=== PATIENT | male | born 1970 | race African-American/Black ===

== ENCOUNTER → 2024-06-02 19:30 | Emergency (ER) | payer OTHER ==
--- NOTE | 2022-12-14 14:57 | RAD REPORT ---
EXAM DESCRIPTION: Leobardo Single View12/14/2022 2:49 pm CLINICAL HISTORY: Chest pain COMPARISON: none FINDINGS: Mild elevation left hemidiaphragm Lungs appear clear of acute infiltrate. The heart is normal size
--- NOTE | 2022-12-14 15:22 | RAD REPORT ---
EXAM DESCRIPTION: CT - Head Brain Wo Cont - 12/14/2022 3:07 pm CLINICAL HISTORY: Dizziness COMPARISON: none TECHNIQUE: Computed axial tomography of the head was obtained. IV contrast was not requested. All CT scans are performed using dose optimization technique as appropriate and may include automated exposure control or mA/KV adjustment according to patient size. FINDINGS: An intracranial bleed is not seen The ventricles are normal in caliber No significant hypodense areas within the brain visualized No extra-axial fluid collection is noted. Fluid within the sinuses/ mastoids is not seen IMPRESSION: No acute intracranial abnormality is seen If patient's symptoms persist MRI of the brain would be recommended
[2022-12-14 15:25] LABS: Absolute Eosinophils 0.1 K/uL (0-0.5); Absolute Lymphocytes (CBC) 1.2 K/uL (0.7-4.9); Absolute Monocytes 0.4 K/uL (0.1-1.3); Basophils % 0.6 % (0-1.3); Eosinophils % 2.3 % (0-4.4); Hematocrit 43.2 % (39.6-49.0); Hemoglobin 14.2 g/dL (13.6-17.9); Lymphocytes % 25.9 % (15.3-44.8); MCH 31.1 pg (27.0-35.0); MCHC 32.9 g/dL (32.0-36.0); MCV 94.6 fL (80-100); MPV 7.1 fL (7.6-11.3); Neutrophils % 63.2 % (41.7-73.7); Platelets 249 thou/uL (152-406); RBC Red Blood Cell Count 4.57 M/uL (4.33-5.43); Red Cell Distribution Width 13.1 % (12.1-15.2)
[2022-12-14 15:28] LABS: Anion Gap 8.1 mEq/L (5.0-15.0); Magnesium 1.6 mg/dL (1.6-2.4); Potassium 4.1 mEq/L (3.5-5.1)
[2022-12-14 15:30] LABS: PT Prothrombin Time 12.2 SECONDS (9.5-12.5); Protime INR 1.11
[2022-12-14 16:47] LABS: Barbiturates NEGATIVE (NEGATIVE); Benzodiazepines NEGATIVE (NEGATIVE); Cocaine POSITIVE (NEGATIVE); METHAMPHETAM NEGATIVE (NEGATIVE); Methadone NEGATIVE (NEGATIVE); Opiates NEGATIVE (NEGATIVE); Phencyclidine NEGATIVE (NEGATIVE); THC Cannibis NEGATIVE (NEGATIVE)
--- NOTE | 2022-12-14 16:59 | EDPHYS ---
Physician Documentation [facility] Name: Jesus Murray Age: 52 yrs Sex: Male : 1970 Arrival Date: 12/14/2022 Time: 14:04 Bed 20 Private MD: ED Physician Yann Wilson HPI: 12/14 15:50 This 52 yrs old Black Male presents to ER via EMS with complaints of Near Syncope, kirti Dizziness. 15:50 The patient or guardian reports chest pain that is located primarily in the substernal kirti area. Onset: today. The patient has experienced near-syncope, almost passed out, felt dizzy. Onset: The symptoms/episode began/occurred just prior to arrival, today. Duration: The patient has had multiple episodes, that last 30 second(s). The pain does not radiate. Context: the episode(s) was witnessed, by co-worker(s), occurred at work. Associated signs and symptoms: Pertinent positives: dizziness, lightheadedness. Modifying factors: The symptoms are alleviated by nothing. the symptoms are aggravated by nothing. Associated injury: The patient did not suffer any apparent associated injury. Historical: - Allergies: 14:50 No Known Allergies; eh3 - Home Meds: 14:50 Metformin Oral [Active]; eh3 - PMHx: 14:50 Diabetes mellitus; Hypertensive disorder; eh3 - Immunization history:: Adult Immunizations up to date. - Social history:: Smoking status: Patient denies any tobacco usage or history of. Patient uses alcohol, occasionally. - Family history:: not pertinent. ROS: 15:50 Constitutional: Negative for fever, chills, and weight loss, Eyes: Negative for injury, kirti pain, redness, and discharge, ENT: Negative for injury, pain, and discharge, Neck: Negative for injury, pain, and swelling, Cardiovascular: Negative for chest pain, palpitations, and edema, Respiratory: Negative for shortness of breath, cough, wheezing, and pleuritic chest pain, Abdomen/GI: Negative for abdominal pain, nausea, vomiting, diarrhea, and constipation, Back: Negative for injury and pain, : Negative for injury, bleeding, discharge, and swelling, MS/Extremity: Negative for injury and deformity, Skin: Negative for injury, rash, and discoloration, Neuro: Negative for headache, weakness, numbness, tingling, and seizure, Psych: Negative for depression, anxiety, suicide ideation, homicidal ideation, and hallucinations, Allergy/Immunology: Negative for hives, rash, and allergies, Endocrine: Negative for neck swelling, polydipsia, polyuria, polyphagia, and marked weight changes, Hematologic/Lymphatic: Negative for swollen nodes, abnormal bleeding, and unusual bruising. Exam: 15:50 Constitutional: This is a well developed, well nourished patient who is awake, alert, kirti and in no acute distress. Head/Face: Normocephalic, atraumatic. Eyes: Pupils equal round and reactive to light, extra-ocular motions intact. Lids and lashes normal. Conjunctiva and sclera are non-icteric and not injected. Cornea within normal limits. Periorbital areas with no swelling, redness, or edema. ENT: Nares patent. No nasal discharge, no septal abnormalities noted. Tympanic membranes are normal and external auditory canals are clear. Oropharynx with no redness, swelling, or masses, exudates, or evidence of obstruction, uvula midline. Mucous membranes moist. Neck: Trachea midline, no thyromegaly or masses palpated, and no cervical lymphadenopathy. Supple, full range of motion without nuchal rigidity, or vertebral point tenderness. No Meningismus. Chest/axilla: Normal chest wall appearance and motion. Nontender with no deformity. No lesions are appreciated. Cardiovascular: Regular rate and rhythm with a normal S1 and S2. No gallops, murmurs, or rubs. Normal PMI, no JVD. No pulse deficits. Respiratory: Lungs have equal breath sounds bilaterally, clear to auscultation and percussion. No rales, rhonchi or wheezes noted. No increased work of breathing, no retractions or nasal flaring. Abdomen/GI: Soft, non-tender, with normal bowel sounds. No distension or tympany. No guarding or rebound. No evidence of tenderness throughout. Back: No spinal tenderness. No costovertebral tenderness. Full range of motion. Male : Normal genitalia with no discharge or lesions. Skin: Warm, dry with normal turgor. Normal color with no rashes, no lesions, and no evidence of cellulitis. MS/ Extremity: Pulses equal, no cyanosis. Neurovascular intact. Full, normal range of motion. Neuro: Awake and alert, GCS 15, oriented to person, place, time, and situation. Cranial nerves II-XII grossly intact. Motor strength 5/5 in all extremities. Sensory grossly intact. Cerebellar exam normal. Normal gait. Psych: Awake, alert, with orientation to person, place and time. Behavior, mood, and affect are within normal limits. 15:50 ECG was reviewed by the Attending Physician. Vital Signs: 14:46 BP 138 / 91; Pulse 90; Resp 18; Temp 98.4(O); Pulse Ox 99% on R/A; Weight 87.54 kg; eh3 Height 5 ft. 11 in. ; 14:50 BP 138 / 91; Pulse 90; Resp 18; Pulse Ox 99% on R/A; Weight 87.54 kg; Height 5 ft. 11 eh3 in. ; Pain 8/10; 15:15 BP 145 / 98; Pulse 95; Resp 15; Pulse Ox 100% on R/A; eh3 15:45 BP 159 / 96; Pulse 94; Resp 14; Pulse Ox 100% on R/A; eh3 16:45 BP 151 / 88; Pulse 92; Resp 20; Pulse Ox 100% on R/A; eh3 17:44 BP 164 / 99 Supine; Pulse 91; eh3 17:46 BP 171 / 102 Sitting; Pulse 94; eh3 17:48 BP 169 / 98 Standing; Pulse 98; eh3 14:50 Body Mass Index 26.92 (87.54 kg, 180.34 cm) eh3 14:50 Pain Scale: Adult eh3 MDM: 14:17 Patient medically screened. ms3 15:58 Differential diagnosis: abnormal EKG, acute myocardial infarction, acute pericarditis, kirti anxiety, congestive heart failure Cholelithiasis hiatal hernia, pancreatitis, pulmonary embolus. HEART Score: History: Slightly Suspicious (0), ECG: Normal (0), Age: > 45 and < 65 years (1), Risk Factors: > or = 3 Risk factors for atherosclerotic disease (2), [Hypertension] [DM] [+ Family HX] Troponin: < or = 1 x Normal Limit (0). Differential Diagnosis: cardiac arrhythmia, drug effect, emotional response, pseudo seizure, vasovagal episode. The patient was not given aspirin in the Emergency Department. GEORGE Risk Score: 1 - Three or more CAD risk factors, TOTAL SCORE = 1. Data reviewed: vital signs, nurses notes, lab test result(s), EKG, radiologic studies, plain films. Consideration of Admission/Observation Escalation of care including admission/observation considered. I considered the following discharge prescriptions or medication management in the emergency department Medications were administered in the Emergency Department. See MAR. Independent interpretation of the following test(s) in the Emergency Department EKG: See my EKG interpretation above. Test considered but Not performed: MRI: NO MRI BRAIN. Care significantly affected by the following chronic conditions: Diabetes, Hypertension. Counseling: I had a detailed discussion with the patient and/or guardian regarding: the historical points, exam findings, and any diagnostic results supporting the discharge/admit diagnosis, the presence of at least one elevated blood pressure reading (>120/80) during this emergency department visit, lab results, radiology results, the need for outpatient follow up, for definitive care, a paper wood cutter, a family practitioner. 12/14 14:19 Order name: Basic Metabolic Panel; Complete Time: 15:48 ms 12/14 14:19 Order name: CBC with Diff; Complete Time: 15:48 [facility] [place] 14:19 Order name: Magnesium; Complete Time: 15:48 [facility] [place]/14 14:19 Order name: NT PRO-BNP; Complete Time: 15:48 [facility] 12/14 14:54 Order name: PT-INR; Complete Time: 15:48 [facility] 12/14 14:54 Order name: Troponin HS; Complete Time: 15:48 [facility] 12/14 15:25 Order name: Acetaminophen [facility] 12/14 15:25 Order name: ETOH Level; Complete Time: 16:58 [facility] 12/14 15:25 Order name: Ptt, Activated; Complete Time: 16:58 [facility] 12/14 15:25 Order name: Salicylate [facility] 12/14 15:25 Order name: Urine Drug Screen; Complete Time: 16:58 [facility] 12/14 14:19 Order name: XRAY Chest (1 view); Complete Time: 15:48 [facility] 12/14 14:54 Order name: CT Head Brain wo Cont; Complete Time: 15:48 [facility] 12/14 14:19 Order name: EKG; Complete Time: 14:19 ms3 12/14 14:19 Order name: Labs collected and sent; Complete Time: 15:12 [facility] 12/14 14:19 Order name: O2 Per Protocol; Complete Time: 15:12 ms3 12/14 14:54 Order name: Cardiac monitoring; Complete Time: 15:12 kirti 12/14 14:54 Order name: EKG - Nurse/Tech; Complete Time: 15:12 [facility] 12/14 14:54 Order name: IV Saline Lock; Complete Time: 15:12 [facility] 12/14 14:54 Order name: O2 Sat Monitoring; Complete Time: 15:12 [facility] 12/14 16:01 Order name: Orthostatics: AFTER FLUIDS; Complete Time: 17:50 [facility] 12/14 16:05 Order name: PO challenge; Complete Time: 17:50 kirti EC:50 Rate is 92 beats/min. Rhythm is regular. QRS [place] is Normal. OR interval is normal. QRS kirti interval is normal. QT interval is normal. No Q waves. T waves are Normal. No ST changes noted. Clinical impression: Normal ECG and No evidence of ischemia. Interpreted by me. Reviewed by me. Administered Medications: 14:54 Not Given (Duplicate Order): Furosemide PO 40 mg PO once [facility] 16:00 Drug: Thiamine IV 100 mg Route: IV; Rate: per protocol; Site: right antecubital; [facility] 17:51 Follow up: Response: No adverse reaction; IV Status: Completed infusion; IV Intake: 1ml [facility] 16:00 Drug: NS 0.9% IV 1000 ml Route: IV; Rate: 1 bolus; Site: right antecubital; [facility] 17:51 Follow up: IV Status: Completed infusion; IV Intake: 1000ml [facility] 16:00 Drug: Banana Bag - (NS 0.9% IV 1000 ml, foLIC Acid IVPB 1 mg, Thiamine IV 100 mg, 3 Multivitamin IV 1 amp) Route: IV; Rate: 500 ml/hr; Site: right antecubital; 17:50 Follow up: IV Status: Completed infusion; IV Intake: 1000ml [facility] 16:00 Drug: Magnesium Sulfate IVPB 1 grams Route: IVPB; Infused Over: 1 hrs; Site: right [facility] antecital; 17:50 Follow up: Response: No adverse reaction; IV Status: Completed infusion; IV Intake: eh3 100ml 17:30 Drug: Aspirin PO 81 mg Route: PO; [facility] 17:50 Follow up: Response: No adverse reaction [facility] Disposition Summary: 12/14/22 16:59 Discharge Ordered Location: Home kirti Problem: new kirti Symptoms: have improved kirti Condition: Stable kirti Diagnosis - Dizziness and giddiness kirti - Syncope Near kirti - Cocaine abuse kirti - Abuse of other non-psychoactive substances kirti Followup: kirti - With: Private Physician - When: 2 - 3 days - Reason: Recheck today's complaints, Continuance of care, Re-evaluation by your physician Followup: kirti - With: - When: 2 - 3 days - Reason: Recheck today's complaints, Re-evaluation by your physician Discharge Instructions: - Discharge Summary Sheet kirti - Cocaine Use Disorder kirti - Dizziness kirti - Near-Syncope kirti - Weakness kirti - Near-Syncope, [id number] kirti - Weakness, [id number] kirti - Aspirin and Your Heart kirti - Dizziness, [id number] kirti Forms: - Medication Reconciliation Form kirti - Thank You Letter kirti - Antibiotic Education kirti - Prescription Opioid Use kirti - Patient Portal Instructions kirti - Work release form eh3 Signatures: Dispatcher [employer] EDYann Rodrigues MD MD cha Sims, Marcus, DO DO ms3 Suzette Garcia RN RN 3 Corrections: (The following items were deleted from the chart) 14:25 14:19 Cardiac monitoring ordered. ms3 ms3 14:25 14:19 EKG - Nurse/Tech ordered. ms3 ms3 14:25 14:19 IV Saline Lock ordered. ms3 ms3 14:25 14:19 O2 Sat Monitoring ordered. ms3 ms3
--- NOTE | 2022-12-14 16:59 | ER ---
Nurse's Notes [facility] Name: Jesus Murray Age: 52 yrs Sex: Male : 1970 Arrival Date: 12/14/2022 Time: 14:04 Bed 20 Private MD: Diagnosis: Dizziness and giddiness;Syncope Near;Cocaine abuse;Abuse of other non-psychoactive substances Presentation: 12/14 14:46 Chief complaint: EMS states: toned out to pt's place of work for dizziness, near eh3 syncope, and diaphoresis. Pt states episode started about 1230 today. Ebola Screen: No symptoms or risks identified at this time. Risk Assessment: Do you want to hurt yourself or someone else? Patient reports no desire to harm self or others. Onset of symptoms was December 14, 2022. 14:46 Method Of Arrival: EMS: [place] [id number] 14:46 Acuity: PATSY 3 3 14:53 Coronavirus screen: Vaccine status: Patient reports receiving the 2nd dose of the covid eh3 vaccine. Initial Sepsis Screen: Does the patient meet any 2 criteria? No. Patient's initial sepsis screen is negative. Does the patient have a suspected source of infection? No. Patient's initial sepsis screen is negative. Triage Assessment: 14:46 General: Appears in no apparent distress. uncomfortable, Behavior is calm, cooperative. eh3 Pain: Denies pain. Neuro: Level of Consciousness is awake, alert, obeys commands, Oriented to person, place, time, situation, Reports dizziness. Cardiovascular: Reports diaphoresis, lightheadedness, nausea, vomiting, Capillary refill < 3 seconds Patient's skin is warm and dry. Respiratory: Airway is patent Respiratory effort is even, unlabored, Respiratory pattern is regular, symmetrical. GI: Abdomen is round non-distended. Derm: Skin is healthy with good turgor, Skin is clammy. Musculoskeletal: Circulation, motion, and sensation intact. Historical: - Allergies: 14:50 No Known Allergies; eh3 - Home Meds: 14:50 Metformin Oral [Active]; eh3 - PMHx: 14:50 Diabetes mellitus; Hypertensive disorder; eh3 - Immunization history:: Adult Immunizations up to date. - Social history:: Smoking status: Patient denies any tobacco usage or history of. Patient uses alcohol, occasionally. - Family history:: not pertinent. Screenin:46 [facility] [place] ED Fall Risk Assessment (Adult) Score/Fall Risk Level 0 - 2 = Low Risk. Abuse eh3 screen: Denies threats or abuse. Denies injuries from another. Nutritional screening: No deficits noted. Tuberculosis screening: No symptoms or risk factors identified. Assessment: 14:46 Reassessment: No changes from previously documented assessment. See triage assessment. eh3 Pain: Pain does not radiate. Pain began suddenly. 15:45 Reassessment: Patient appears in no apparent distress at this time. Patient and/or eh3 family updated on plan of care and expected duration. Pain level reassessed. Patient is alert, oriented x 3, equal unlabored respirations, skin warm/dry/pink. 16:45 Reassessment: Patient appears in no apparent distress at this time. Patient and/or 3 family updated on plan of care and expected duration. Pain level reassessed. Patient is alert, oriented x 3, equal unlabored respirations, skin warm/dry/pink. 17:45 Reassessment: Patient appears in no apparent distress at this time. Patient and/or 3 family updated on plan of care and expected duration. Pain level reassessed. Patient is alert, oriented x 3, equal unlabored respirations, skin warm/dry/pink. Vital Signs: 14:46 BP 138 / 91; Pulse 90; Resp 18; Temp 98.4(O); Pulse Ox 99% on R/A; Weight 87.54 kg; eh3 Height 5 ft. 11 in. ; 14:50 BP 138 / 91; Pulse 90; Resp 18; Pulse Ox 99% on R/A; Weight 87.54 kg; Height 5 ft. 11 eh3 in. ; Pain 8/10; 15:15 BP 145 / 98; Pulse 95; Resp 15; Pulse Ox 100% on R/A; eh3 15:45 BP 159 / 96; Pulse 94; Resp 14; Pulse Ox 100% on R/A; eh3 16:45 BP 151 / 88; Pulse 92; Resp 20; Pulse Ox 100% on R/A; eh3 17:44 BP 164 / 99 Supine; Pulse 91; eh3 17:46 BP 171 / 102 Sitting; Pulse 94; eh3 17:48 BP 169 / 98 Standing; Pulse 98; eh3 14:50 Body Mass Index 26.92 (87.54 kg, 180.34 cm) eh3 14:50 Pain Scale: Adult 3 ED Course: 14:16 Patient arrived in ED. 3 14:17 Davi Black DO is Attending Physician. ms3 14:27 Attending Physician role handed off by Davi Black DO eb 14:27 Yann Wilson MD is Attending Physician. eb 14:45 Suzette Garcia, HEIDI is Primary Nurse. eh3 14:46 Patient has correct armband on for positive identification. Bed in low position. Call 3 light in reach. Side rails up X2. Adult w/ patient. Client placed on continuous cardiac and pulse oximetry monitoring. NIBP monitoring applied. 14:46 Maintain EMS IV. Dressing intact. Good blood return noted. Site clean \T\ dry. Gauge \T\ eh 3 site: 18g RAC. Patient maintains SpO2 saturation greater than 95% on room air. 14:47 Triage completed. eh3 14:50 Arm band placed on. 3 14:51 XRAY Chest (1 view) In Process Unspecified. EDMS 15:08 CT Head Brain wo Cont In Process Unspecified. EDMS 16:59 Benton Levin MD is Referral Physician. [facility] 18:30 Provided Education on: N/A. [facility] 18:30 No provider procedures requiring assistance completed. IV discontinued, intact, eh3 bleeding controlled, No redness/swelling at site. Pressure dressing applied. Administered Medications: 14:54 Not Given (Duplicate Order): Furosemide PO 40 mg PO once [facility] 16:00 Drug: Thiamine IV 100 mg Route: IV; Rate: per protocol; Site: right antecubital; [facility] 17:51 Follow up: Response: No adverse reaction; IV Status: Completed infusion; IV Intake: 1ml [facility] 16:00 Drug: NS 0.9% IV 1000 ml Route: IV; Rate: 1 bolus; Site: right antecubital; [facility] 17:51 Follow up: IV Status: Completed infusion; IV Intake: 1000ml [facility] 16:00 Drug: Banana Bag - (NS 0.9% IV 1000 ml, foLIC Acid IVPB 1 mg, Thiamine IV 100 mg, 3 Multivitamin IV 1 amp) Route: IV; Rate: 500 ml/hr; Site: right antecubital; 17:50 Follow up: IV Status: Completed infusion; IV Intake: 1000ml 3 16:00 Drug: Magnesium Sulfate IVPB 1 grams Route: IVPB; Infused Over: 1 hrs; Site: right [facility] antecubital; 17:50 Follow up: Response: No adverse reaction; IV Status: Completed infusion; IV Intake: eh3 100ml 17:30 Drug: Aspirin PO 81 mg Route: PO; eh3 17:50 Follow up: Response: No adverse reaction 3 Medication: 18:30 VIS not applicable for this client. eh3 Intake: 17:50 IV: 100ml; Total: 100ml. eh3 17:50 IV: 1000ml; Total: 1100ml. eh3 17:51 IV: 1000ml; Total: 2100ml. eh3 17:51 IV: 1ml; Total: 2101ml. 3 Outcome: 16:59 Discharge ordered by . [facility] 18:30 Discharged to home ambulatory, with family. 3 18:30 Condition: stable 18:30 Discharge instructions given to patient, family, Instructed on discharge instructions, follow up and referral plans. Demonstrated understanding of instructions, follow-up care. 18:44 Patient left the ED. 3 Signatures: Dispatcher [employer] EDMS Yann Wilson MD MD cha Botello, Elizabeth eb Sims, Marcus, DO DO ms3 Suzette Garcia RN RN 3 Corrections: (The following items were deleted from the chart) 15:47 14:53 BP 138 / 91; Pulse 90bpm; Resp 18bpm; Pulse Ox 99% RA; 3 eh3 17:19 14:46 Acuity: PATSY 2 eh3 3
[2022-12-14 19:05] VITALS: TEMP 98.4
[2022-12-14 19:07] VITALS: O2SAT 100
[2022-12-14 19:13] VITALS: BP 169/98
--- NOTE | 2022-12-16 13:16 | EKG ---
Test Date: 2022-12-14 Test Time: 14:56:59 Director Speech And Hearing: BRANDI MEASUREMENT RESULTS: Intervals: Rate: 92 WY: 154 QRSD: 94 QT: 350 QTc: 432 [place]: P: 48 WY: 154 QRS: 23 T: 70 INTERPRETIVE STATEMENTS: Normal sinus rhythm Normal ECG No previous ECG available for comparison Electronically Signed On 12-16-22 13:12:28 CDT by Benton Levin
[~2024-06-02 19:30] MED LIST: ASPIRIN EC 81 MG TAB PO ONE; FOLIC ACID 1 MG, MULTIVITAMINS INJ 10 ML, THIAMINE HCL 100 MG in NA CHLORIDE 0.9% 1,000 ML IV ONE; MAGNESIUM SULFATE 1 gm IVPB 1 GM/100 ML BAG IV ONE; NA CHLORIDE 0.9% 1,000 ML ONE; THIAMINE 200 MG/2 ML INJ ONE
== END | disposition home or self-care (01) ==
LOC: ER 12-14 14:04
DX: R55 Syncope and collapse (principal); F14.10 Cocaine abuse, uncomplicated; F55.8 Abuse of other non-psychoactive substances; E11.9 Type 2 diabetes mellitus without complications
CPT/HCPCS: 96365; 96367; 96368; 93005; 85025; 80048; 36415; 83735; 85610; 85730; 84484; 83880; 80307; 70450; 71045; 99285; 80143; 80179; 82077; J3411 ×2; J3475; J7030 ×2